=== PATIENT | male | born 1960 | race Caucasian/White ===

== ENCOUNTER → 2018-08-07 11:03 | Outpatient (CLI) | payer OTHER, SELFPAY ==
[2018-08-17 16:10] LABS: Testosterone Free 64.1
[2018-08-17 16:11] LABS: Testosterone Total 380
== END ==
PROVIDERS: PCP Family Medicine; Visit Provider Surgery
DX: N40.0 Benign prostatic hyperplasia without lower urinary tract symptoms (principal)
CPT/HCPCS: 36415; 84402; 84403; G0103